=== PATIENT | female | born 1975 | race Caucasian/White ===

== ENCOUNTER 2016-08-13 21:39 | Emergency (ER) | payer MEDICAID, OTHER ==
[~2016-08-13] VITALS: Ht 152.4 cm; Wt 68.0 kg
[2016-08-13 22:17] VITALS: BP 139/106; PULSE 86; RESP 19; TEMP 98.1; O2SAT 100
--- NOTE | 2016-08-13 23:27 | NUR ---
Placed in room 07 . Placed on infection prevention specialist, blood pressure machine and pulse oximeter. To gown for exam. Side rails up. Report given to JANICE Narayan.
--- NOTE | 2016-08-13 23:37 | NUR ---
Pt states since 1900, she had 10/10 abd pain with N and V. Will continue to monitor. No other injuries or complaints mentioned/noted. AAOX4. No distress noted.
--- NOTE | 2016-08-13 23:37 | NUR ---
Note lioneldanielle in EDM - 08/14/16 at 0138 by NINA Pt states since 1899, she had 12/09 abd pain with N and V. Will continue to monitor. No other injuries or complaints mentioned/noted. No distress noted.
--- NOTE | 2016-08-13 23:37 | NUR ---
ER Dr. Javier at bedside examining patient.
--- NOTE | 2016-08-13 23:47 | NUR ---
Note lioneldanielle in EDM - 08/14/16 at 0139 by NINA Pt states since 1899, she had 03/11 abd pain with N and V. Will continue to monitor. No other injuries or complaints mentioned/noted. AAOX4. No distress noted.
[2016-08-13] MEDS ORDERED: NACL 0.9% 1,000 ML IV ONE (23:49)
[2016-08-14] MEDS ORDERED: MORPHINE 4 MG/ML INJ. SYRINGE IVP ONE
[2016-08-14] MEDS ORDERED: DIPHENHYDRAMINE INJ 50 MG/ML VIAL IVP ONE
[2016-08-14] MEDS ORDERED: KETOROLAC TROMETHAMINE 30 MG VIAL IVP ONE
[2016-08-14] MEDS ORDERED: ONDANSETRON HCL 4 MG/2 ML VIAL IVP ONE
--- NOTE | 2016-08-14 00:30 | NUR ---
# 18 gauge angiocath placed to R AC. Use of asceptic technique. Opsite placed over site. Blood return noted. Blood for lab drawn from site. Flushed with 10 cc of normal saline. No evidence of infiltration noted. Patient tolerated well.
[2016-08-14 01:23] LABS: BASOPHILS % (AUTO) 0.3 % (0.0-2.0); EOSINOPHILS % (AUTO) 0.2 % (0.0-4.0); HEMATOCRIT 35.3 % (36-48); LYMPHOCYTES # (AUTO) 0.5 K/uL (1.0-5.5); LYMPHOCYTES % (AUTO) 5.1 % (20.5-51.5); MEAN CORPUSCULAR HEMOGLOBIN 31 pg (27-31); MEAN CORPUSCULAR HGB CONC 34 % (32-36); MEAN CORPUSCULAR VOLUME 92 fL (79.0-98.0); MONOCYTES # (AUTO) 0.4 K/uL (0.0-1.0); MONOCYTES % (AUTO) 3.5 % (1.7-9.3); NEUTROPHILS # (AUTO) 9.6 K/uL (1.8-7.7); NEUTROPHILS % (AUTO) 90.9 % (40.0-70.0); PLATELET COUNT (AUTO) 159 K/uL (130-430); RED BLOOD CELL COUNT(AUTO) 3.85 MIL/uL (4.2-6.2); RED CELL DISTRIBUTION WIDTH 12.7 % (9.0-15.0); WHITE BLOOD COUNT (AUTO) 10.5 K/uL (4.8-10.8)
[2016-08-14 01:24] LABS: CALCIUM 8.6 mg/dL (8.4-11.0); CREATININE 0.81 mg/dL (0.55-1.30); POTASSIUM 3.4 mmol/L (3.5-5.1)
[2016-08-14 02:14] LABS: BILIRUBIN,URINE NEGATIVE (NEGATIVE); BLOOD, URINE 1+ (NEGATIVE); COLOR,URINE YELLOW (YELLOW); GLUCOSE,URINE NEGATIVE (NEGATIVE); KETONES,URINE NEGATIVE (NEGATIVE); LEUKOCYTE ESTERASE ,URINE TRACE (NEGATIVE); NITRITE, URINE NEGATIVE (NEGATIVE); PROTEIN URINE NEGATIVE (NEGATIVE); UROBILINOGEN,URINE 0.2 (0.2-1.0)
[2016-08-14 02:21] LABS: CLARITY/URINE HAZY (CLEAR)
[2016-08-14 02:23] LABS: BACTERIA,URINE MANY /HPF (None Seen); MUCUS,URINE None Seen /LPF (None Seen); RBC,URINE 0-3 /HPF (0-3)
[2016-08-14 02:33] VITALS: BP 128/78; PULSE 86; RESP 19; TEMP 98.7; O2SAT 100
--- NOTE | 2016-08-14 02:33 | NUR ---
Patient given written and verbal discharge instructions and verbalizes understanding. ER MD discussed with patient the results and treatment provided. Patient in stable condition. ID arm band removed. IV catheter removed intact and dressing applied, no active bleeding. Rx of [place] and Ibuprofen given. Patient educated on pain management and to follow up with PMD. Pain Scale 0/10. Opportunity for questions provided and answered.
== END 2016-08-14 02:33 | disposition home or self-care (01) ==
LOC: SED 21:39
DX: N13.2 Hydronephrosis with renal and ureteral calculous obstruction (principal); I10 Essential (primary) hypertension; Z90.49 Acquired absence of other specified parts of digestive tract
CPT/HCPCS: 36415; 74176; 80048; 81000; 81025; 85025; 87086; 87186; 96361; 96374; 96375; 99285; J1200; J1885; J2270; J2405; J7030

== ENCOUNTER 2017-06-22 14:12 | Emergency (ER) | payer MEDICAID ==
[~2017-06-22] VITALS: Ht 152.4 cm; Wt 67.1 kg
[2017-06-22 14:15] VITALS: BP_SYST 151
--- NOTE | 2017-06-22 14:57 | NUR ---
Patient to ER bed 3 to gown for evaluation. Side rails up. Report received from JANICE Wade.
--- NOTE | 2017-06-22 14:58 | NUR ---
Pt complains of having vaginal bleed for 15 days. Pt states she is on her period but thought it would've stopped after 7 days. Per patient, bleeding has increasingly got heavier and has blood clots. Pt denies N/V, fever, or diarrhea. Pt states she has "some pain" to lower left quadrant of abdomen. No other injuries/complaints per patient or noted.
--- NOTE | 2017-06-22 15:01 | NUR ---
ER YASHIRA Billings at bedside examining patient.
--- NOTE | 2017-06-22 15:09 | NUR ---
lab at patient bedside obtaining blood. pt tolerated well.
--- NOTE | 2017-06-22 15:11 | NUR ---
Pt went to ultrasound in stable condition.
[2017-06-22 15:32] LABS: BILIRUBIN,URINE NEGATIVE (NEGATIVE); BLOOD, URINE 3+ (NEGATIVE); CLARITY/URINE CLOUDY (CLEAR); COLOR,URINE RED (YELLOW); GLUCOSE,URINE NEGATIVE (NEGATIVE); KETONES,URINE NEGATIVE (NEGATIVE); LEUKOCYTE ESTERASE ,URINE 2+ (NEGATIVE); NITRITE, URINE NEGATIVE (NEGATIVE); PROTEIN URINE 2+ (NEGATIVE); UROBILINOGEN,URINE 0.2 (0.2-1.0)
[2017-06-22 15:33] LABS: BACTERIA,URINE MANY /HPF (None Seen); RBC,URINE >100 /HPF (0-3); WBC,URINE 50-80 /HPF (0-3)
--- NOTE | 2017-06-22 15:34 | NUR ---
Pt returned from radiology in stable condition.
[2017-06-22] MEDS ORDERED: cefTRIAXone 1 GM IVPB PREMIX 50 ML IV ONE (15:45)
[2017-06-22] MEDS ORDERED: NACL 0.9% 1,000 ML IV ONE (15:45)
[2017-06-22 15:48] LABS: BASOPHILS % (AUTO) 0.5 % (0.0-2.0); EOSINOPHILS # (AUTO) 0.1 K/uL (0.0-0.4); LYMPHOCYTES # (AUTO) 1.9 K/uL (1.0-5.5); MEAN CORPUSCULAR VOLUME 91 fL (79.0-98.0); MONOCYTES # (AUTO) 0.4 K/uL (0.0-1.0)
[2017-06-22 16:07] LABS: CREATININE 0.6 mg/dL (0.55-1.30); POTASSIUM 3.5 mmol/L (3.5-5.1)
[2017-06-22 16:10] LABS: EOSINOPHILS % (AUTO) 1.3 % (0.0-4.0); HEMATOCRIT 31.3 % (36-48); HEMOGLOBIN 10.2 g/dL (12.0-16.0); LYMPHOCYTES % (AUTO) 33.6 % (20.5-51.5); MEAN CORPUSCULAR HEMOGLOBIN 30 pg (27-31); MEAN CORPUSCULAR HGB CONC 33 % (32-36); MONOCYTES % (AUTO) 7.5 % (1.7-9.3); NEUTROPHILS # (AUTO) 3.2 K/uL (1.8-7.7); NEUTROPHILS % (AUTO) 57.1 % (40.0-70.0); PLATELET COUNT (AUTO) 243 K/uL (130-430); RED BLOOD CELL COUNT(AUTO) 3.44 MIL/uL (4.2-6.2); WHITE BLOOD COUNT (AUTO) 5.6 K/uL (4.8-10.8)
[2017-06-22 16:12] LABS: ALBUMIN 3.5 g/dL (3.4-4.8); TOTAL BILIRUBIN 0.2 mg/dL (0.0-1.0)
--- NOTE | 2017-06-22 16:12 | NUR ---
# 22 gauge angiocath placed to RAC. Use of asceptic technique. Opsite placed over site. Blood return noted. Blood for lab drawn from site. Flushed with 10 cc of normal saline. No evidence of infiltration noted. Patient tolerated well.
--- NOTE | 2017-06-22 16:25 | NUR ---
Medications were given, pt tolerated well. No adverse reaction, will continue to monitor.
[2017-06-22 16:57] LABS: INR 0.9 (0.8-1.2); PROTHROMBIN TIME 9.4 SECS (9.5-12.5)
[2017-06-22 17:20] VITALS: BP_SYST 139
--- NOTE | 2017-06-22 17:20 | NUR ---
Patient given written and verbal discharge instructions and verbalizes understanding. ER MD discussed with patient the results and treatment provided. Patient in stable condition. ID arm band removed. IV catheter removed intact and dressing applied, no active bleeding. Rx of Pyridium, Cipri, Provera given. Patient educated on pain management and to follow up with PMD. Pain Scale 0. Opportunity for questions provided and answered.
== END 2017-06-22 17:20 | disposition home or self-care (01) ==
LOC: SED 14:12
DX: N39.0 Urinary tract infection, site not specified (principal); N92.0 Excessive and frequent menstruation with regular cycle; N80.9 Endometriosis, unspecified; D64.9 Anemia, unspecified; I10 Essential (primary) hypertension; Z98.51 Tubal ligation status; Z87.442 Personal history of urinary calculi; Z90.49 Acquired absence of other specified parts of digestive tract
CPT/HCPCS: 36415; 76830; 76857; 80053; 81000; 81025; 85025; 85610; 85730; 87040; 87086; 87186; 96365; 99285; J0696; J7030

== ENCOUNTER 2017-07-04 12:43 | Emergency (ER) | payer MEDICAID ==
[~2017-07-04] VITALS: Ht 152.4 cm; Wt 67.1 kg
[2017-07-04 12:57] VITALS: BP_SYST 110
[2017-07-04 14:06] LABS: BASOPHILS % (AUTO) 0.3 % (0.0-2.0); EOSINOPHILS # (AUTO) 0.1 K/uL (0.0-0.4); EOSINOPHILS % (AUTO) 0.8 % (0.0-4.0); HEMOGLOBIN 8.1 g/dL (12.0-16.0); MEAN CORPUSCULAR HGB CONC 33 % (32-36); MONOCYTES # (AUTO) 0.6 K/uL (0.0-1.0); NEUTROPHILS # (AUTO) 4.8 K/uL (1.8-7.7); RED CELL DISTRIBUTION WIDTH 13.6 % (9.0-15.0)
[2017-07-04 14:13] LABS: HEMATOCRIT 24.9 % (36-48); LYMPHOCYTES # (AUTO) 2.3 K/uL (1.0-5.5); LYMPHOCYTES % (AUTO) 29.6 % (20.5-51.5); MEAN CORPUSCULAR HEMOGLOBIN 30 pg (27-31); MEAN CORPUSCULAR VOLUME 92 fL (79.0-98.0); MONOCYTES % (AUTO) 7.9 % (1.7-9.3); NEUTROPHILS % (AUTO) 61.4 % (40.0-70.0); PLATELET COUNT (AUTO) 228 K/uL (130-430); RED BLOOD CELL COUNT(AUTO) 2.73 MIL/uL (4.2-6.2); WHITE BLOOD COUNT (AUTO) 7.8 K/uL (4.8-10.8)
[2017-07-04 14:52] VITALS: BP_SYST 101
[2017-07-05] MEDS ORDERED: LISI-600 PO (18:59)
[2017-07-05] MEDS ORDERED: ESTR1.25 PO (19:03)
== END 2017-07-04 14:52 | disposition home or self-care (01) ==
LOC: SED 12:43
DX: N93.9 Abnormal uterine and vaginal bleeding, unspecified (principal); I10 Essential (primary) hypertension
CPT/HCPCS: 36415; 85025; 99283

== ENCOUNTER 2017-07-05 16:01 | Inpatient (IN) | payer MEDICAID ==
[~2017-07-05] VITALS: Ht 152.4 cm; Wt 67.1 kg
[2017-07-05 16:06] VITALS: BP_SYST 125
[2017-07-05 18:55] LABS: EOSINOPHILS # (AUTO) 0.1 K/uL (0.0-0.4); LYMPHOCYTES # (AUTO) 3.6 K/uL (1.0-5.5); NEUTROPHILS # (AUTO) 4.3 K/uL (1.8-7.7)
[2017-07-05] MEDS ORDERED: LISI-600 PO (18:59)
[2017-07-05 19:01] LABS: BASOPHILS % (AUTO) 0.5 % (0.0-2.0); EOSINOPHILS % (AUTO) 1.7 % (0.0-4.0); HEMATOCRIT 23.1 % (36-48); HEMOGLOBIN 7.6 g/dL (12.0-16.0); MEAN CORPUSCULAR HEMOGLOBIN 31 pg (27-31); MEAN CORPUSCULAR HGB CONC 33 % (32-36); MEAN CORPUSCULAR VOLUME 93 fL (79.0-98.0); MONOCYTES # (AUTO) 0.7 K/uL (0.0-1.0); MONOCYTES % (AUTO) 7.9 % (1.7-9.3); NEUTROPHILS % (AUTO) 48.9 % (40.0-70.0); PLATELET COUNT (AUTO) 231 K/uL (130-430); RED BLOOD CELL COUNT(AUTO) 2.49 MIL/uL (4.2-6.2); RED CELL DISTRIBUTION WIDTH 13.7 % (9.0-15.0); WHITE BLOOD COUNT (AUTO) 8.7 K/uL (4.8-10.8)
[2017-07-05 19:02] LABS: CLARITY/URINE CLOUDY (CLEAR); COLOR,URINE RED (YELLOW); GLUCOSE,URINE NEGATIVE (NEGATIVE); KETONES,URINE TRACE (NEGATIVE); PH,URINE 7.5 (5.0-8.0); PROTEIN URINE 2+ (NEGATIVE)
[2017-07-05 19:03] LABS: BILIRUBIN,URINE NEGATIVE (NEGATIVE); BLOOD, URINE 3+ (NEGATIVE); LEUKOCYTE ESTERASE ,URINE 2+ (NEGATIVE); NITRITE, URINE POSITIVE (NEGATIVE)
[2017-07-05] MEDS ORDERED: ESTR1.25 PO (19:03)
[2017-07-05 19:13] LABS: BACTERIA,URINE MANY /HPF (None Seen); RBC,URINE >100 /HPF (0-3); WBC,URINE 80-100 /HPF (0-3)
[2017-07-05 19:14] LABS: CALCIUM OXALATE CRYSTALS,UR None Seen /HPF (None Seen); CALCIUM PHOSPHATE CRYSTALS,UR None Seen /HPF (None Seen); COARSE GRANULAR CASTS,URINE None Seen /LPF (None Seen); FINE GRANULAR CASTS,URINE None Seen /LPF (None Seen); HYALINE CASTS, URINE None Seen /LPF (None Seen); MUCUS,URINE None Seen /LPF (None Seen); OTHER CASTS, URINE None Seen /LPF (None Seen); OTHER CRYSTALS,URINE None Seen /HPF (None Seen); TRICHOMONAS,URINE None Seen /HPF (None Seen); TRIPLE PHOSPHATE CRYSTAL,UR None Seen /HPF (None Seen); URIC ACID CRYSTALS,URINE None Seen /HPF (None Seen); URINE AMORPHOUS PHOSPHATES None Seen /HPF (None Seen); URINE AMORPHOUS URATE None Seen /HPF (None Seen); WAXY CASTS,URINE None Seen /LPF (None Seen); YEAST,URINE None Seen /HPF (None Seen)
[2017-07-05 19:21] LABS: CALCIUM 8.4 mg/dL (8.4-11.0); CHLORIDE 107 mmol/L (98-107); CREATININE 0.68 mg/dL (0.55-1.30); GLUCOSE 93 mg/dL (70-99); POTASSIUM 3.9 mmol/L (3.5-5.1); SODIUM SERUM 138 mmol/L (136-145); UREA NITROGEN, BLOOD 15 mg/dL (8-21)
[2017-07-05 19:23] LABS: GFR AFRICAN AMERICAN 121 mL/min (>90)
[2017-07-05 19:24] LABS: ANION GAP < 3 (5-15)
[2017-07-05 19:31] LABS: INR 0.9 (0.8-1.2); PROTHROMBIN TIME 9.5 SECS (9.5-12.5)
[2017-07-05 19:32] LABS: ALANINE AMINOTRANSFERASE 50 U/L (12-78); ALBUMIN 3.3 g/dL (3.4-4.8); ASPARTATE AMINOTRANSFERASE 19 U/L (10-37); HCG,QUANTITATIVE 0 mIU/ML (0-6); TOTAL BILIRUBIN 0.1 mg/dL (0.0-1.0)
[2017-07-05] MEDS ORDERED: cefTRIAXone 1 GM in D5W 50 ML IV ONE (19:45)
[2017-07-05] MEDS ORDERED: cefTRIAXone 1 GM VIAL ONE (21:11)
[2017-07-05 21:59] VITALS: BP_SYST 119
[2017-07-05] MEDS: D5LR 1,000 ML IV SCH (23:12)
[2017-07-06] VITALS (10 sets, daily range): BP systolic 107–123
[2017-07-06 06:12] LABS: HEMOGLOBIN 9.8 g/dL (12.0-16.0)
[2017-07-06 06:15] LABS: CREATININE 0.62 mg/dL (0.55-1.30); POTASSIUM 4.5 mmol/L (3.5-5.1)
[2017-07-06] MEDS: D5LR 1,000 ML IV SCH (06:37)
[2017-07-06] MEDS ORDERED: ONDANSETRON HCL 4 MG/2 ML VIAL IVP PRN (10:45)
[2017-07-06] MEDS ORDERED: fentaNYL CITRATE/PF 100 MCG/2 ML AMP IVP PRN (10:45)
[2017-07-06] MEDS ORDERED: MIDAZOLAM HCL 5 MG/ML VIAL (VERSED) IV ONE (11:20)
[2017-07-06] MEDS ORDERED: NS 1000 ML BAG IV ONE (11:20)
[2017-07-06] MEDS ORDERED: fentaNYL CITRATE 250 MCG/5 ML AMP IV ONE (11:20)
[2017-07-06] MEDS ORDERED: LR 1,000 ML IV.SOLN IV ONE (11:20)
[2017-07-06] MEDS ORDERED: CEFAZOLIN 2 GM IVPB PREMIX 50 ML IV ONE (11:20)
[2017-07-06] MEDS ORDERED: PROPOFOL 200MG/ 20ML VIAL (DIPRIVAN) IV ONE (11:20)
[2017-07-06] MEDS ORDERED: SEVOFLURANE 15 MIN GAS INH ONE (11:20)
[2017-07-06] MEDS ORDERED: ONDANSETRON HCL 4 MG/2 ML VIAL IVP ONE (11:20)
[2017-07-06] MEDS ORDERED: OXYC-130 PO (12:35)
== END 2017-07-06 18:20 | disposition home or self-care (01) | DRG 517 ==
LOC: SED 16:01 → SMU 20:47
PROVIDERS: ADMIT Specialist; ATTEND Specialist
PROC: 30233N1 Transfusion of Nonautologous Red Blood Cells into Peripheral Vein, Percutaneous Approach (ICD-10-PCS; 2017-07-06)
PROC: 0UDB8ZZ Extraction of Endometrium, Via Natural or Artificial Opening Endoscopic (ICD-10-PCS; principal; 2017-07-06 09:45)
DX: D25.9 Leiomyoma of uterus, unspecified (principal); D64.9 Anemia, unspecified; N80.0 Endometriosis of uterus; N92.1 Excessive and frequent menstruation with irregular cycle
CPT/HCPCS: 36415; 80048; 80053; 81000-TC; 81025; 83605; 84702-TC; 85018-TC; 85025; 85610-TC; 86886; 86900; 86901; 86920; 87040-TC; 87081; 87086; 87186-TC; 88305; 94010; 99285; J0690; J0696; J2250; J2405; J2704; J3010; J7030; J7040; J7120; P9021

== ENCOUNTER 2017-12-14 18:08 | Emergency (ER) | payer MEDICAID ==
[~2017-12-14] VITALS: Ht 152.4 cm; Wt 70.3 kg
[2017-12-14 18:08] VITALS: BP_SYST 157
[~2017-12-14 18:08] MED LIST: ESTR1.25 PO; LISI-600 PO; OXYC-130 PO
[2017-12-14] MEDS ORDERED: ASPIRIN 81 MG TAB.CHEW PO ONE (19:30)
[2017-12-14] MEDS ORDERED: KETOROLAC TROMETHAMINE 30 MG VIAL IVP ONE (20:00)
[2017-12-14] MEDS ORDERED: NS 500 ML IV ONE (20:00)
[2017-12-14 20:19] LABS: BASOPHILS % (AUTO) 0.6 % (0.0-2.0); EOSINOPHILS # (AUTO) 0.1 K/uL (0.0-0.4); EOSINOPHILS % (AUTO) 1.8 % (0.0-4.0); HEMATOCRIT 33.3 % (36-48); HEMOGLOBIN 11.4 g/dL (12.0-16.0); LYMPHOCYTES # (AUTO) 2.3 K/uL (1.0-5.5); LYMPHOCYTES % (AUTO) 38.3 % (20.5-51.5); MEAN CORPUSCULAR HEMOGLOBIN 31 pg (27-31); MEAN CORPUSCULAR HGB CONC 34 % (32-36); MEAN CORPUSCULAR VOLUME 92 fL (79.0-98.0); MONOCYTES # (AUTO) 0.5 K/uL (0.0-1.0); MONOCYTES % (AUTO) 8.3 % (1.7-9.3); NEUTROPHILS # (AUTO) 3.2 K/uL (1.8-7.7); PLATELET COUNT (AUTO) 200 K/uL (130-430); RED BLOOD CELL COUNT(AUTO) 3.63 MIL/uL (4.2-6.2); RED CELL DISTRIBUTION WIDTH 13.3 % (9.0-15.0); WHITE BLOOD COUNT (AUTO) 6.1 K/uL (4.8-10.8)
[2017-12-14 20:20] LABS: CREATININE 0.66 mg/dL (0.55-1.30); POTASSIUM 3.5 mmol/L (3.5-5.1)
[2017-12-14 20:24] LABS: INR 0.9 (0.8-1.2); PROTHROMBIN TIME 9.2 SECS (9.5-12.5)
[2017-12-14 20:25] LABS: ALBUMIN 3.4 g/dL (3.4-4.8); TOTAL BILIRUBIN 0.3 mg/dL (0.0-1.0)
[2017-12-14] MEDS ORDERED: KETOROLAC TROMETHAMINE 30 MG VIAL IM ONE (20:45)
[2017-12-14 20:55] VITALS: BP_SYST 149
== END 2017-12-14 20:55 | disposition home or self-care (01) ==
LOC: SED 18:08
DX: R07.89 Other chest pain (principal); I10 Essential (primary) hypertension; Z90.49 Acquired absence of other specified parts of digestive tract; Z79.899 Other long term (current) drug therapy
CPT/HCPCS: 36415; 80053; 82550; 84484; 85025; 85610; 85730; 93005; 96372; 99285; J1885; J7040

== ENCOUNTER 2018-01-24 21:03 | Inpatient (IN) | payer MEDICAID ==
[~2018-01-24] VITALS: Ht 152.4 cm; Wt 72.3 kg
--- NOTE | 2018-01-24 21:04 | NUR ---
Patient to ER bed 1 to gown for evaluation. Side rails up.
[2018-01-24 21:06] VITALS: BP_SYST 193
--- NOTE | 2018-01-24 21:10 | NUR ---
Patient ambulatory to ED a/o x 4 with c/o diffuse chest pain radiating to mid upper back. Patient also reports having elevated blood pressure. Recently started on lisinopril. Patient reports symptoms of dizziness, unsteady gait. -N/V/D -Palpitations, -SOB. Patient afebrile
--- NOTE | 2018-01-24 21:13 | NUR ---
ED MD Javier at bedside for medical evaluation.
[2018-01-24] MEDS ORDERED: ONDANSETRON HCL 4 MG/2 ML VIAL IVP ONE (21:30)
[2018-01-24] MEDS ORDERED: NITROGLYCERIN 0.4 MG TAB.SUBL SL ONE (21:30)
[2018-01-24] MEDS ORDERED: ASPIRIN 81 MG TAB.CHEW PO ONE (21:30)
--- NOTE | 2018-01-24 21:38 | NUR ---
1st-Nitro SL 0.4 mg admin at this time. BP: 161/82 HR: 65
--- NOTE | 2018-01-24 21:43 | NUR ---
Patient denies chest pain at this time, stating she "I only have a headache right now, I don't have chest pain". No further nitroglycerin given at this time. MD notified. Will continue to monitor.
[2018-01-24 21:44] LABS: BILIRUBIN,URINE NEGATIVE (NEGATIVE); BLOOD, URINE 3+ (NEGATIVE); CLARITY/URINE SL CLOUDY (CLEAR); COLOR,URINE YELLOW (YELLOW); GLUCOSE,URINE NEGATIVE (NEGATIVE); KETONES,URINE NEGATIVE (NEGATIVE); LEUKOCYTE ESTERASE ,URINE 3+ (NEGATIVE); NITRITE, URINE POSITIVE (NEGATIVE); PH,URINE 6.5 (5.0-8.0); PROTEIN URINE TRACE (NEGATIVE)
[2018-01-24 21:47] LABS: BACTERIA,URINE MODERATE /HPF (None Seen); WBC,URINE >100 /HPF (0-3)
[2018-01-24 22:06] LABS: BASOPHILS % (AUTO) 0.6 % (0.0-2.0); EOSINOPHILS # (AUTO) 0.1 K/uL (0.0-0.4); EOSINOPHILS % (AUTO) 2.1 % (0.0-4.0); HEMATOCRIT 34.8 % (36-48); HEMOGLOBIN 11.8 g/dL (12.0-16.0); LYMPHOCYTES # (AUTO) 2.4 K/uL (1.0-5.5); LYMPHOCYTES % (AUTO) 38.3 % (20.5-51.5); MEAN CORPUSCULAR HEMOGLOBIN 32 pg (27-31); MEAN CORPUSCULAR HGB CONC 34 % (32-36); MEAN CORPUSCULAR VOLUME 93 fL (79.0-98.0); MONOCYTES # (AUTO) 0.5 K/uL (0.0-1.0); MONOCYTES % (AUTO) 7.4 % (1.7-9.3); NEUTROPHILS # (AUTO) 3.3 K/uL (1.8-7.7); NEUTROPHILS % (AUTO) 51.6 % (40.0-70.0); PLATELET COUNT (AUTO) 226 K/uL (130-430); RED BLOOD CELL COUNT(AUTO) 3.74 MIL/uL (4.2-6.2); RED CELL DISTRIBUTION WIDTH 13.4 % (9.0-15.0); WHITE BLOOD COUNT (AUTO) 6.3 K/uL (4.8-10.8)
--- NOTE | 2018-01-24 22:07 | NUR ---
Radiology at bedside for CXR.
[2018-01-24 22:12] LABS: CALCIUM 8.8 mg/dL (8.4-11.0); CREATININE 0.6 mg/dL (0.55-1.30); POTASSIUM 3.5 mmol/L (3.5-5.1)
[2018-01-24 22:15] LABS: INR 0.9 (0.8-1.2); PROTHROMBIN TIME 9.5 SECS (9.5-12.5)
[2018-01-24 22:17] LABS: ALBUMIN 3.9 g/dL (3.4-4.8); TOTAL BILIRUBIN 0.4 mg/dL (0.0-1.0)
--- NOTE | 2018-01-24 23:00 | NUR ---
ED MD Lynneek at bedside reassessing patient.
--- NOTE | 2018-01-24 23:40 | NUR ---
Medication reconciliation completed with information provided by patient. Any prior medication reconciliation on file was reviewed and corrected.
[2018-01-25] MEDS ORDERED: cefTRIAXone 1 GM IVPB PREMIX 50 ML IV ONE
[2018-01-25] MEDS ORDERED: NITROGLYCERIN 0.4 MG TAB.SUBL SL PRN
[2018-01-25] MEDS ORDERED: TEMAZEPAM 15 MG CAPSULE PO PRN
--- NOTE | 2018-01-25 00:03 | NUR ---
End of life care decisions discussed with patient by Dr. Javier. Opportunity for questions and concerns addressed. Patient's code status is Full code paperwork completed and placed in chart.
--- NOTE | 2018-01-25 00:13 | NUR ---
ADMIT NOTE Received pt from ER to the floor with a diagnosis of chest pain / uti. Admission process initiated. patient oriented to pain management, safety and call light-teach back done.
--- NOTE | 2018-01-25 00:15 | NUR ---
Patient will be admitted to care of Dr. Lepe. Admitted to Telemetry unit. Will go to room 134A. Belongings list completed. Summary report printed. Report will be given at bedside. Transfer to Telemetry via ACLS protocol. Licensed nurse present. IV present no signs or symptoms of infiltration.
[2018-01-25 00:22] VITALS: BP_SYST 141
[2018-01-25] MEDS: ACETAMINOPHEN 325 MG TABLET PO PRN (00:42)
--- NOTE | 2018-01-25 00:49 | NUR ---
Patient is resting comfortably in bed. Refuses bed alarm at this time. Patient is able to ambulate independently without assistance to the bathroom and back to bed, Gait is steady. Offered to remove patient's pants for an assessment, but patient refused at this time. No SOB, no acute distress. Patient is complaining of a headache and back pain. Tylenol given PRN per MD order, see eMAR for details. Bed is locked, in the lowest position, 2x side rails up. Patient refuses bed alarm at this time. Call light within reach. Patient demonstrated ability to use the call light to call staff. Explained plan of care to the patient. Patient verbalized understanding. Will continue with plan of care. Turned off all the lights per patient request to promote rest.
--- NOTE | 2018-01-25 01:02 | NUR ---
Noted that patient's home medication states that she takes Lisinopril 20mg PO daily, but inpatient the doctor ordered for Lisinopril 20mg PO BID. Will call MD for order clarification in the sexologist.
--- NOTE | 2018-01-25 01:42 | NUR ---
CONSULTATION CALLED CONSULTATION ORDERED BY DR HUYNH CONSULTATION TYPE: ROUTINE CONSULTING DR : DR PATTON CONSULTATION FOR: CHEST PAIN SPOKE WITH : EDDIE
--- NOTE | 2018-01-25 04:15 | NUR ---
Patient is resting comfortably in bed with eyes closed. No SOB, no acute distress, no signs of pain or facial grimacing. Breathing is even and unlabored with visible chest rise and fall noted. Call light is within reach.
--- NOTE | 2018-01-25 04:37 | NUR ---
Patient is resting comfortably in bed with eyes closed. No SOB, no acute distress, no complaints of pain at this time. IV site intact, currently infusing IVF at ordered rate, see eMAR. Bed is locked, in the lowest position, 2x side rails up, bed alarm is on. Call light to right hand. Addendum: 01/25/18 at 0439 by Lu Burgos RN ERROR* WRONG PATIENT
--- NOTE | 2018-01-25 05:45 | NUR ---
Patient is resting comfortably in bed with eyes closed. No SOB, no acute distress, no signs of pain. Bed is locked, in the lowest postiion, 2x side rails up. Call light within reach.
--- NOTE | 2018-01-25 06:35 | NUR ---
Dr Lepe called. Inquired with Dr Lepe on Lisinopril order, since pharmacy called previously to ask. The patient takes Lisinopril 20meq PO daily at home; however, there are orders for Lisinopril 20meq PO BID inpatient. Dr Lepe stated that he would like the patient to take Lisinopril 20meq PO BID. No change in orders.
--- NOTE | 2018-01-25 06:46 | NUR ---
Closing Notes Patient is sleeping, resting comfortably in bed. No SOB, no acute distress, no signs of pain or facial grimacing. Breathing is even and unlabored with visible chest rise and fall noted. IV site is intact, dressing clean and dry, saline locked. Bed is locked, in the lowest position, 2x side rails up. Call light is within reach. Fall and safety precautions maintained. All needs have been met during this shift. Will endorse care to oncoming dayshift nurse.
--- NOTE | 2018-01-25 07:55 | NUR ---
INITIAL NOTE PT LAYING IN BED, AAOX4, NO S/S OF ACUTE DISTRESS OR COMPLAINT OF CHEST PAIN AT THIS TIME. IV TO LAC INTACT, SALINE LOCKED. PLAN OF CARE DISCUSSED, PT VERBALIZED UNDERSTANDING, SAFETY PRECAUTIONS IN PLACE, CALL LIGHT WITHIN REACH, WILL FOLLOW UP
[2018-01-25 08:08] VITALS: BP_SYST 138
[2018-01-25] MEDS: ENOXAPARIN SODIUM 40 MG/0.4 ML SYRINGE SUBCUT SCH (08:13)
[2018-01-25] MEDS: ASPIRIN 81 MG TAB.CHEW PO SCH (08:14)
[2018-01-25] MEDS ORDERED: METOPROLOL TARTRATE 25 MG TABLET PO SCH (09:00)
[2018-01-25] MEDS ORDERED: LISINOPRIL 10 MG TABLET (PRINIVIL) PO SCH (09:00)
--- NOTE | 2018-01-25 09:30 | NUR ---
DR PATTON AT BEDSIDE, WILL CARRYOUT ANY NEW ORDERS
--- NOTE | 2018-01-25 11:39 | NUR ---
MENSTRUAL CYCLE PT STARTED HER MENSTRUAL CYCLE, PROVIDED WITH CLEAN UNDERWEAR AND PADS AND HYGIENE SUPPLIES. WILL FOLLOW UP
[2018-01-25 12:00] VITALS: BP_SYST 131
--- NOTE | 2018-01-25 12:52 | NUR ---
DR HUYNH AT BEDSIDE, UPDATED ON PT STATUS, DR SOUTH ORDERS, PT ASSESSED. NEW ORDER RECEIVED TO PLACE LIPID PANEL ORDER FOR TOMORROW IF NOT ALREADY IN PLACE, AND FOLLOW UP FOR CLEARANCE FROM CARDIO
--- NOTE | 2018-01-25 15:18 | NUR ---
ROUNDS PT LAYING TO SIDE IN BD, WATCHING MOVIES ON HER PHONE. PT DENIES ANY CHEST PAIN OR DISCOMFORT AT THIS TIME. QUESTIONED IF SHE WILL MOST LIKELY STAY THE NIGHT, UPDATD THAT NO DISCHARGE ORDER WAS RECEIVED FORM DR HUYNH, OF NOW PT TO STAY. PT VERBALIZED UNDERSTANDING, WILL FOLLOW UP
[2018-01-25 16:56] VITALS: BP_SYST 122
--- NOTE | 2018-01-25 18:26 | NUR ---
CLOSING NOTE PT LAYING IN BED, WATCHING TV, NO S/S OF ACUTE DISTRESS. NO COMPLAINT OF CHEST PAIN ALL SHIFT. ALL NEEDS ATTENDED TO THROUGH OUT SHIFT, SAFETY PRECAUTIONS MAINTAINED. WILL GIVE REPORT TO FOLLOWING SHIFT
--- NOTE | 2018-01-25 19:15 | NUR ---
OPENING NOTES RECEIVED PATIENT RESTING IN BED AAO X4. DENIES CHEST DISCOMFORT AT THIS TIME. BREATHING UNLABORED ON ROOM AIR. PLAN OF CARE REVIEWED WITH PATIENT. CALL LIGHT WITHIN EASY REACH.
[2018-01-25 19:47] VITALS: BP_SYST 128
--- NOTE | 2018-01-25 20:22 | NUR ---
ATB DUE ANTIBIOTIC INFUSED ORDERED. IV LINE PATENT ON LEFT AC. DENIES ANY PAIN.
[2018-01-25] MEDS ORDERED: cefTRIAXone 1 GM IVPB PREMIX 50 ML IV SCH (21:00)
[2018-01-25 23:11] VITALS: BP_SYST 131
--- NOTE | 2018-01-25 23:15 | NUR ---
ROUNDS PATIENT RESTING IN BED. DENIES PAIN. NO DISTRESS NOTED. VITAL SIGNS STABLE. CALL LIGHT WITHIN EASY REACH.
--- NOTE | 2018-01-26 01:18 | NUR ---
ROUNDS PATIENT RESTING IN BED. BREATHING UNLABORED ON ROOM AIR. CALL LIGHT WITHIN EASY REACH. SB-SR ON TELE MONITOR.
--- NOTE | 2018-01-26 03:55 | NUR ---
ROUNDS PATIENT RESTING QUIETLY IN BED. BREATHING CALM ON ROOM AIR. CALL LIGHT WITHIN EASY REACH.
--- NOTE | 2018-01-26 06:37 | NUR ---
CLOSING NOTES PATIENT RESTING IN BED. NO DISTRESS NOTED. IV LINE INTACT. NEEDS ATTENDED. SINUS RHYTHM ON TELE MONITOR. CALL LIGHT WITHIN EASY REACH.
[2018-01-26 07:25] LABS: ALBUMIN 3.2 g/dL (3.4-4.8); CALCIUM 8.7 mg/dL (8.4-11.0); CREATININE 0.7 mg/dL (0.55-1.30); THYROID STIMULATING HORMONE 0.45 uIu/mL (0.34-4.82); TOTAL BILIRUBIN 0.3 mg/dL (0.0-1.0)
[2018-01-26 08:00] VITALS: BP_SYST 138
[2018-01-26] MEDS: ASPIRIN 81 MG TAB.CHEW PO SCH (08:37)
[2018-01-26] MEDS: ENOXAPARIN SODIUM 40 MG/0.4 ML SYRINGE SUBCUT SCH (08:44)
--- NOTE | 2018-01-26 08:57 | NUR ---
OPENING NOTE REPORT IS RECEIVED FROM BRAND LEAD NURSE AND CARE IS ENDORSED TO MYSELF. PT IS RECEIVED AWAKE, ALERT, AND ORIENTED X4. NO SIGNS OR SYMPTOMS OF DISTRESS OR SOB NOTED. MORNING VS ARE STABLE. WHITE BOARD IS UPDATED AND PLAN OF CARE IS DISCUSSED. CURRENT NEEDS ARE MET. BED IS AT LOWEST POSITION, CALL LIGHT WITHIN REACH, TWO SIDE RAILS UP, BED ALARM IS ON. WILL CONTINUE TO MONITOR.
[2018-01-26] MEDS ORDERED: METOPROLOL SUCCINATE 50 MG TAB.SR.24H (TOPROL XL) PO SCH (09:00)
[2018-01-26] MEDS ORDERED: LISINOPRIL 10 MG TABLET (PRINIVIL) PO SCH (09:00)
--- NOTE | 2018-01-26 10:03 | NUR ---
ROUNDS PT IS AWAKE AND ALERT. NO SIGNS OR SYMPTOMS OF DISTRESS OR SOB NOTED. PT DENIES ANY PAIN. CURRENT NEEDS ARE MET. BED IS AT LOWEST POSITION, CALL LIGHT WITHIN REACH, TWO SIDE RAILS UP, BED ALARM IS ON. WILL CONTINUE TO MONITOR.
[2018-01-26 12:35] VITALS: BP_SYST 110
--- NOTE | 2018-01-26 12:44 | NUR ---
ROUNDS PT IS AWAKE AND ALERT, EATING LUNCH. NO SIGNS OR SYMPTOMS OF DISTRESS OR SOB NOTED. PT DENIES ANY PAIN. GAVE PT [place] FOR MENSTRUAL CYCLE. CURRENT NEEDS ARE MET. BED IS AT LOWEST POSITION, CALL LIGHT WITHIN REACH, TWO SIDE RAILS UP. WILL CONTINUE TO MONITOR.
[2018-01-26 13:17] VITALS: BP_SYST 110
[2018-01-26] MEDS: ACETAMINOPHEN 325 MG TABLET PO PRN (13:50)
--- NOTE | 2018-01-26 14:18 | NUR ---
ROUNDS PT IS AWAKE AND ALERT, WATCHING TV. NO SIGNS OR SYMPTOMS OF DISTRESS OR SOB NOTED. PT COMPLAINS OF HEADACHE AND WAS GIVEN TYLENOL. CURRENT NEEDS ARE MET. BED IS AT LOWEST POSITION, CALL LIGHT WITHIN REACH, TWO SIDE RAILS UP. WILL CONTINUE TO MONITOR.
--- NOTE | 2018-01-26 14:31 | NUR ---
DR. HUYNH ROUNDING
[2018-01-26] MEDS ORDERED: LISI-600 PO (15:34)
[2018-01-26] MEDS ORDERED: ASA81 PO (15:35)
[2018-01-26] MEDS ORDERED: METO-442 PO (15:35)
[2018-01-26] MEDS ORDERED: LIP20 PO (15:36)
[2018-01-26] MEDS ORDERED: SULF1TAB48 PO (15:38)
--- NOTE | 2018-01-26 15:50 | NUR ---
D/C Patient Patient given medication reconciliation form and D/C instructions. Exit Care provided. Patient verbalized understanding. MD discussed with patient the results and treatment provided. Ambulatory with steady gait for discharge to home. Patient in stable condition, ID band removed. IV catheter removed, intact and dressing applied, no active bleeding. Rx of LIPITOR, SEPTRA, METROPOLOL, ECOTRIN, LISINOPRIL given. Patient educated on pain management. All belongings sent with patient.
== END 2018-01-26 15:50 | disposition home or self-care (01) | DRG 463 ==
LOC: SED 21:03 → STU 23:55
PROVIDERS: ADMIT Family Medicine; ATTEND Family Medicine
DX: N39.0 Urinary tract infection, site not specified (principal); E78.5 Hyperlipidemia, unspecified; M94.0 Chondrocostal junction syndrome [Tietze]; I10 Essential (primary) hypertension; F41.9 Anxiety disorder, unspecified; Z79.899 Other long term (current) drug therapy; Z90.49 Acquired absence of other specified parts of digestive tract; Z98.891 History of uterine scar from previous surgery; Z79.82 Long term (current) use of aspirin; Z90.710 Acquired absence of both cervix and uterus
CPT/HCPCS: 36415; 71045; 80053; 80061; 81000-TC; 81025; 82550-TC; 83880; 84443-TC; 84484; 85025; 85379; 85610-TC; 85730-TC; 87086; 87186-TC; 93005; 93306; 96365; 96375; 99285; J0696; J1650; J2405

== ENCOUNTER 2018-04-09 17:31 | Emergency (ER) | payer MEDICAID ==
[~2018-04-09] VITALS: Ht 152.4 cm; Wt 69.9 kg
[2018-04-09 17:31] VITALS: BP_SYST 164
[~2018-04-09 17:31] MED LIST changes: +ASA81 PO; -ESTR1.25 PO; +LIP20 PO; +METO-442 PO; -OXYC-130 PO; +SULF1TAB48 PO
--- NOTE | 2018-04-09 17:31 | NUR ---
BROUGHT BACK TO BED #7 AND TRIAGED, REPORT GIVEN TO OMAR
--- NOTE | 2018-04-09 17:35 | NUR ---
Pt AAOx4 ambulated into ED c/o vaginal bleeding/blood clots and 8/10 L pelvic painx 2 weeks accompanying lightheadedness and dizziness. LBM 1700; Last meal 1700. Skin pink dry and warm, breathing even and unlabored. No other injuries/complaints per pt/noted. Will continue to monitor.
--- NOTE | 2018-04-09 18:40 | NUR ---
ER Dr. Miller at bedside examining patient.
[2018-04-09 18:41] LABS: BASOPHILS % (AUTO) 0.6 % (0.0-2.0); EOSINOPHILS # (AUTO) 0.1 K/uL (0.0-0.4); EOSINOPHILS % (AUTO) 1.2 % (0.0-4.0); HEMATOCRIT 31.8 % (36-48); LYMPHOCYTES # (AUTO) 2.8 K/uL (1.0-5.5); MEAN CORPUSCULAR HEMOGLOBIN 29 pg (27-31); MEAN CORPUSCULAR HGB CONC 32 % (32-36); MEAN CORPUSCULAR VOLUME 93 fL (79.0-98.0); MONOCYTES # (AUTO) 0.5 K/uL (0.0-1.0); MONOCYTES % (AUTO) 6.2 % (1.7-9.3); NEUTROPHILS # (AUTO) 3.9 K/uL (1.8-7.7); PLATELET COUNT (AUTO) 300 K/uL (130-430); RED BLOOD CELL COUNT(AUTO) 3.44 MIL/uL (4.2-6.2); RED CELL DISTRIBUTION WIDTH 12.4 % (9.0-15.0); WHITE BLOOD COUNT (AUTO) 7.3 K/uL (4.8-10.8)
--- NOTE | 2018-04-09 18:42 | NUR ---
Ultrasound at bedside
[2018-04-09 18:58] LABS: BILIRUBIN,URINE NEGATIVE (NEGATIVE); BLOOD, URINE 3+ (NEGATIVE); CLARITY/URINE CLEAR (CLEAR); COLOR,URINE YELLOW (YELLOW); GLUCOSE,URINE NEGATIVE (NEGATIVE); KETONES,URINE NEGATIVE (NEGATIVE); LEUKOCYTE ESTERASE ,URINE 2+ (NEGATIVE); NITRITE, URINE NEGATIVE (NEGATIVE); PH,URINE 5.5 (5.0-8.0); PROTEIN URINE NEGATIVE (NEGATIVE); UROBILINOGEN,URINE 0.2 (0.2-1.0)
[2018-04-09 19:05] LABS: BACTERIA,URINE MODERATE /HPF (None Seen); WBC,URINE 20-50 /HPF (0-3)
--- NOTE | 2018-04-09 19:22 | NUR ---
Cipro PO administered. Pt tolerated well. No adverse reactions noted.
--- NOTE | 2018-04-09 19:25 | NUR ---
Patient given written and verbal discharge instructions and verbalizes understanding. ER MD Miller discussed with patient the results and treatment provided. Patient in stable condition. ID arm band removed. Rx of Cipro given. Patient educated on pain management and to follow up with PMD. Pain Scale 0. Opportunity for questions provided and answered. Medication side effect fact sheet provided.
[2018-04-09 19:26] VITALS: BP_SYST 147
[2018-04-09] MEDS ORDERED: CIPROFLOXACIN HCL 500 MG TABLET PO ONE (19:30)
== END 2018-04-09 19:25 | disposition home or self-care (01) ==
LOC: SED 17:31
DX: N93.8 Other specified abnormal uterine and vaginal bleeding (principal); N39.0 Urinary tract infection, site not specified; R42 Dizziness and giddiness; I10 Essential (primary) hypertension; Z79.82 Long term (current) use of aspirin; Z79.899 Other long term (current) drug therapy
CPT/HCPCS: 36415; 76830-TC; 76857; 81000-TC; 81025; 84702-TC; 85025; 86900; 86901; 87086; 87186-TC; 99285

== ENCOUNTER 2018-09-30 17:45 | Emergency (ER) | payer MEDICAID ==
[~2018-09-30] VITALS: Ht 152.4 cm; Wt 68.9 kg
[2018-09-30 18:06] VITALS: BP_SYST 136
--- NOTE | 2018-09-30 18:13 | NUR ---
Patient triaged and placed in waiting room. VSS and patient appears in no acute distress at this time. Accompanied by daughters, awaiting available bed, and MD notified of need for MSE.
--- NOTE | 2018-09-30 18:17 | NUR ---
BROUGHT BACK TO BED #7 AND REPORT GIVEN TO ESTUARDO
--- NOTE | 2018-09-30 18:30 | NUR ---
Patient AOx4 accompanied by 2 daughters for c/o vomitting and diarrhea x 1 after eating [employer]. Patient states she has 7/10 pain in abdominal region. Patient denies taking any pain medication at home. Patient denies fever. NKA. Patient stated she has past surgical hx of hysterectomy, cholecystectomy, and . Patient has a hx of HTN and kidney stones. No signs of acute distress @ this time.
--- NOTE | 2018-09-30 18:55 | NUR ---
Dr. Warner @ bedside for examination.
[2018-09-30] MEDS ORDERED: ONDANSETRON 4 MG ODT TAB PO ONE (19:00)
[2018-09-30 19:35] VITALS: BP_SYST 130
--- NOTE | 2018-09-30 19:35 | NUR ---
Patient given written and verbal discharge instructions and verbalizes understanding. ER MD discussed with patient the results and treatment provided. Patient in stable condition. ID arm band removed. Rx of Zofran ODT given. Patient educated on pain management and to follow up with PMD. Pain Scale 0. Opportunity for questions provided and answered. Medication side effect fact sheet provided. Patient left ER in no acute distress, able to ambulate without difficulty with slow, steady gait with family at her side. No adverse reaction noted to medication.
== END 2018-09-30 19:35 | disposition home or self-care (01) ==
LOC: SED 17:45
DX: T62.8X1A Toxic effect of other specified noxious substances eaten as food, accidental (unintentional), initial encounter (principal); R51 Headache; I10 Essential (primary) hypertension; Z90.710 Acquired absence of both cervix and uterus; Z79.82 Long term (current) use of aspirin; Z79.899 Other long term (current) drug therapy; Y92.89 Other specified places as the place of occurrence of the external cause
CPT/HCPCS: 86710; 99283; Q0162; 36415

== ENCOUNTER 2020-09-25 18:08 | Emergency (ER) | payer MEDICAID ==
[~2020-09-25] VITALS: Ht 152.4 cm; Wt 68.0 kg
[~2020-09-25 18:08] MED LIST changes: -LISI-600 PO; +LISI20TA30 PO
[2020-09-25 19:00] VITALS: BP_SYST 131
[2020-09-26] MEDS ORDERED: KETOROLAC TROMETHAMINE 60 MG/2 ML VIAL IM ONE (00:15)
[2020-09-26] MEDS ORDERED: CYCL-10 PO (00:25)
[2020-09-26] MEDS ORDERED: NAPR-1172 PO (00:25)
[2020-09-26 00:33] VITALS: BP_SYST 136
== END 2020-09-26 00:33 | disposition home or self-care (01) ==
LOC: SED 18:08
DX: M54.2 Cervicalgia (principal); R51.9 Headache, unspecified; M79.601 Pain in right arm; M79.602 Pain in left arm; Z79.899 Other long term (current) drug therapy; V49.40XA Driver injured in collision with unspecified motor vehicles in traffic accident, initial encounter; Y93.89 Activity, other specified; Y92.411 Interstate highway as the place of occurrence of the external cause; Y99.8 Other external cause status
CPT/HCPCS: 81025; 96372; 99283; J1885